=== PATIENT | female | born 1960 | race African-American/Black ===

== ENCOUNTER 2017-03-20 10:24 | Emergency (ER) | payer OTHER ==
[2017-03-20 10:29] VITALS: BMI 30.9
--- NOTE | 2017-03-20 11:07 | PDOC ---
*Physical Exam - Vital Signs Last Vital Signs Temp Pulse Resp BP Pulse Ox 97.6 F 66 17 148/98 98 03/20/17 10:27 03/20/17 10:27 03/20/17 10:27 03/20/17 10:27 03/20/17 10:27 ED Treatment Course - LABORATORY CBC & Chemistry Diagram: 03/20/17 11:15 03/20/17 11:13 Medical Decision Making - Medical Decision Making 03/20/17 23:20 Pt seen by the Advanced Practice Provider under my direct supervision Ancillary studies reviewed I agree with plan as outlined by the Advanced Practice Provider *DC/Admit/Observation/Transfer Diagnosis at time of Disposition: Viral gastroenteritis, Elevated liver function tests - Discharge Dispostion Disposition: HOME Condition at time of disposition: Improved - Prescriptions Prescriptions: Famotidine [Pepcid -] 20 mg PO DAILY #7 tablet - Referrals Referrals: [facility] ([facility]) [Outside] [facility] ([facility]) [Outside] Car York MD [Staff Physician] - - Patient Instructions Printed Discharge Instructions: DI for Viral Gastroenteritis -- Adult Additional Instructions: bland diet as tolerated the next 24-48hrs start with clear fluids then dry cereal, dry toast, bannanas take pepcid as prescribed for 7 days follow with [facility] for follow up call today to make appointment for next week follow up on the elevated liver enzymes with your doctor at [facility] avoid any ALCOHOL as this may make your symptoms worse Return to the ER for any worsening pain
[2017-03-20] MEDS ORDERED: SODIUM CHLORIDE 1,000 ML IV STA (11:13)
[2017-03-20] MEDS ORDERED: FAMOTIDINE 20 MG/50 ML IVPB 50 ML IVPB ONE ×2 (11:13→11:19)
[2017-03-20] MEDS ORDERED: ONDANSETRON 4 MG/2 ML VIAL IVPUSH ONE (11:13)
[2017-03-20] MEDS ORDERED: ONDANSETRON 4 MG/2 ML VIAL ONE (11:18)
--- NOTE | 2017-03-20 11:19 | PDOC ---
History of Present Illness - General Chief Complaint: Pain Stated Complaint: ABD PAIN Time Seen by Provider: 03/20/17 11:06 History Source: Patient Exam Limitations: No Limitations - History of Present Illness Travel History: No Initial Comments: 03/20/17 11:16 56 yr female with c/o headache abd pain for one week. Pt states loose stool, worse since last night after drinking a [employer] alcoholic drink. Pt denies fever or chill, history of gastric bypass. Pt denies any medical history allergy to bactrim. no PMD Timing/Duration: reports: constant Quality: reports: mild, cramping (comes and goes) Pain Radiation: reports: no radiation Activities at Onset: reports: none Past History - Past Medical History Allergies/Adverse Reactions: Allergies Allergy/AdvReac Type Severity Reaction Status Date / Time Sulfa (Sulfonamide Allergy Verified 03/20/17 10:30 Antibiotics) Home Medications: Ambulatory Orders Famotidine [Pepcid -] 20 mg PO DAILY #7 tablet 03/20/17 Other medical history: Pt denies - Suicide/Smoking/Psychosocial Hx Smoking History: Never smoked Hx Alcohol Use: No Drug/Substance Use Hx: No Substance Use Type: None Abd/GI Specific PMHX - Complaint Specific PMHX Colitis: No Diverticulitis: No Gall Bladder Disease: No GERD: No Hepatitis: No Irritable Bowel Synd (IBS): No Pancreatitis: No GI Ulcer Disease: No Review of Systems - Review of Systems Able to Perform ROS?: Yes Is the patient limited Slovenian proficient: No Constitutional: No: Symptoms Reported HEENTM: No: Symptoms Reported Respiratory: No: Symptoms reported Cardiac (ROS): No: Symptoms Reported ABD/GI: Yes: Symptoms Reported, See HPI Neurological: Yes: Symptoms reported, Headache *Physical Exam - Vital Signs Last Vital Signs Temp Pulse Resp BP Pulse Ox 97.6 F 66 17 148/98 98 03/20/17 10:27 03/20/17 10:27 03/20/17 10:27 03/20/17 10:27 03/20/17 10:27 - Physical Exam General Appearance: Yes: Nourished, Appropriately Dressed HEENT: positive: EOMI, JOYCE, Normal ENT Inspection, TMs Normal, Pharynx Normal. negative: TM Erythema Neck: positive: Supple. negative: Tender Respiratory/Chest: positive: Lungs Clear, Normal Breath Sounds. negative: Chest Tender Cardiovascular: positive: Regular Rhythm, Regular Rate Gastrointestinal/Abdominal: positive: Normal Bowel Sounds, Soft. negative: Tender, Guarding, Rebound, Tenderness Musculoskeletal: positive: Normal Inspection Extremity: positive: Normal Capillary Refill, Normal Inspection, Normal Range of Motion Integumentary: positive: Normal Color, Dry, Warm Neurologic: positive: Fully Oriented, Alert, Normal Mood/Affect, Normal Response , Motor Strength 5/5, Finger to Nose (intact ). negative: Respond to painful stimul, Responsive, EOM Palsy, Facial Droop, Sensory Deficit, Disoriented ED Treatment Course - LABORATORY CBC & Chemistry Diagram: 03/20/17 11:15 03/20/17 11:13 Medical Decision Making - Medical Decision Making 03/20/17 11:19 cc: headache with photphobia, abd pain on and off one week worse after drinking alcohol last night will check labs, IVF, pepcid, zofran, benadryl abd is soft non tender no rebound 03/20/17 11:20 *DC/Admit/Observation/Transfer Diagnosis at time of Disposition: Viral gastroenteritis, Elevated liver function tests - Discharge Dispostion Disposition: HOME Condition at time of disposition: Improved - Prescriptions Prescriptions: Famotidine [Pepcid -] 20 mg PO DAILY #7 tablet - Referrals Referrals: [facility] [place] ([facility]) [Outside] [facility] [place] ([facility]) [Outside] Cra York MD [Staff Physician] - - Patient Instructions Additional Instructions: bland diet as tolerated the next 24-48hrs start with clear fluids then dry cereal, dry toast, bannanas take pepcid as prescribed for 7 days follow with [facility] for follow up call today to make appointment for next week follow up on the elevated liver enzymes with your doctor at [facility] avoid any ALCOHOL as this may make your symptoms worse Return to the ER for any worsening pain
[2017-03-20 11:21] LABS: BASOPHIL 0.5 % (0-2.0); EOSINOPHIL 0.7 % (0-4.5); MCH 28.1 pg (25.7-33.7); MCHC 32.5 g/dl (32.0-36.0); MEAN CELL VOLUME 86.2 fl (80-96); MEAN PLT VOLUME 7.9 fl (7.5-11.1); NEUTROPHILS 81.2 % (42.8-82.8); PLATELET COUNT 284 K/MM3 (134-434); RDW 13.7 % (11.6-15.6); WHITE BLOOD COUNT 10.3 K/mm3 (4.0-10.0)
[2017-03-20 11:42] LABS: URINE APPEARANCE SLCLOUDY; URINE BILIRUBIN NEGATIVE (NEGATIVE); URINE BLOOD NEGATIVE (NEGATIVE); URINE COLOR AMBER; URINE GLUCOSE (UA) NEGATIVE (NEGATIVE); URINE KETONE NEGATIVE (NEGATIVE); URINE LEUK ESTERASE NEGATIVE (NEGATIVE); URINE NITRITE NEGATIVE (NEGATIVE)
[2017-03-20 11:51] LABS: URINE PROTEIN 1+ (NEGATIVE)
[2017-03-20 11:53] LABS: URINE MUCUS MANY; URINE RBC 11 /hpf (0-3); URINE WBC 2 /hpf (3-5)
[2017-03-20 11:54] LABS: ALBUMIN 3.6 g/dl (3.4-5.0); ALK PHOS 87 U/L (45-117); AMYLASE 55 U/L (25-115); ANION GAP 4 (8-16); BILIRUBIN,TOTAL 0.5 mg/dL (0.2-1.0); CALCIUM 9.1 mg/dL (8.5-10.1); CO2 30 mmol/L (21-32); CREATININE 0.7 mg/dL (0.55-1.02); GLUCOSE,RANDOM 97 mg/dL (74-106); SGPT/ALT 80 U/L (12-78); TOT PROT 6.9 g/dl (6.4-8.2)
[2017-03-20 11:56] LABS: SGOT/AST 64 U/L (15-37)
[2017-03-20 14:45] VITALS: BP 126/78; PULSE 78; TEMP 98.2
== END 2017-03-20 14:20 | disposition home or self-care (01) ==
LOC: JER 10:24
PROC: 3E033GC Introduction of Other Therapeutic Substance into Peripheral Vein, Percutaneous Approach (ICD-10-PCS; principal; 2017-03-20)
PROC: 3E033GC Introduction of Other Therapeutic Substance into Peripheral Vein, Percutaneous Approach (ICD-10-PCS; 2017-03-20)
DX: A08.4 Viral intestinal infection, unspecified (principal); B97.89 Other viral agents as the cause of diseases classified elsewhere; R79.89 Other specified abnormal findings of blood chemistry
CPT/HCPCS: 36415; 80053; 81003; 81015; 82150; 83690; 85025; 87086; 99283-25

== ENCOUNTER 2017-04-09 14:28 | Emergency (ER) | payer OTHER ==
[2017-04-09 14:50] VITALS: BMI 28.3
--- NOTE | 2017-04-09 14:59 | PDOC ---
History of Present Illness - General History Source: Patient - History of Present Illness Timing/Duration: reports: other Severity: Yes: moderate Associated Symptoms: denies: fever/chills, nausea/vomiting, ringing in ears <Bhavani Granado - Last Filed: 04/09/17 16:15> <Yris Huynh - Last Filed: 04/11/17 07:21> - General Chief Complaint: Lightheaded Stated Complaint: DIZZINESS Time Seen by Provider: 04/09/17 14:46 Past History - Past Medical History HTN: Yes Other medical history: migraines - Surgical History GI Surgery: Yes (gastric bypass) - Suicide/Smoking/Psychosocial Hx Smoking History: Never smoked Have you smoked in the past 12 months: No Information on smoking cessation initiated: No Hx Alcohol Use: No Drug/Substance Use Hx: No Substance Use Type: None <Bhavani Granado - Last Filed: 04/09/17 16:15> <Yris Huynh - Last Filed: 04/11/17 07:21> - Past Medical History Allergies/Adverse Reactions: Allergies Allergy/AdvReac Type Severity Reaction Status Date / Time Sulfa (Sulfonamide Allergy Verified 04/09/17 14:43 Antibiotics) Home Medications: Ambulatory Orders Cyanocobalamin (Vitamin B-12) [Vitamin B-12] 1,000 mcg PO DAILY 04/09/17 Review of Systems - Review of Systems Constitutional: No: Chills, Fever ABD/GI: No: Nausea, Vomiting Neurological: Yes: Headache, Dizziness <Bhavani Granado - Last Filed: 04/09/17 16:15> *Physical Exam - Vital Signs Last Vital Signs Temp Pulse Resp BP Pulse Ox 97.3 F L 72 20 159/104 100 04/09/17 14:47 04/09/17 14:47 04/09/17 14:47 04/09/17 14:47 04/09/17 14:47 - Physical Exam General Appearance: Yes: Appropriately Dressed. No: Apparent Distress HEENT: positive: Normal Voice Neck: positive: Supple Respiratory/Chest: negative: Respiratory Distress Integumentary: positive: Dry, Warm Neurologic: positive: Fully Oriented, Alert, Normal Mood/Affect, Motor Strength 5/5 <Bhavani Granado - Last Filed: 04/09/17 16:15> - Vital Signs Last Vital Signs Temp Pulse Resp BP Pulse Ox 98.1 F 75 18 138/95 99 04/09/17 16:35 04/09/17 16:35 04/09/17 16:35 04/09/17 16:35 04/09/17 16:35 <Yris Huynh - Last Filed: 04/11/17 07:21> ED Treatment Course - RADIOLOGY Radiology Studies Ordered: Category Date Time Status HEAD CT WITHOUT CONTRAST [CT] Stat CT Scan 04/09/17 14:57 Ordered <Bhavani Granado - Last Filed: 04/09/17 16:15> Medical Decision Making - Medical Decision Making 04/09/17 14:58 56-year-old female, denies any past medical history here with headache and dizziness that has been intermittent for 2 months. Was seen in ED over 2 weeks ago for symptoms and had negative blood work. Patient states she went to see her doctor as a walk in visit today and was told she might have migraines and started on fioricet which pt has not yet started. States Meyer also arranged for her to have a CT head in the near future, but decided to come to ED for CT instead as she is anxious. Patient denies any visual changes, nausea and vomiting. No unexplained weight loss. MAGALLANES mild currently. Pt well teresa and stable w/ unremarkable exam. CT head pending. Anticipate discharge to continue f/u with PMD. May also benefit from neuro f/u 04/09/17 15:07 04/09/17 16:07 CT with no acute pathology. Seen is a 0.70.4 cm focus in the right lateral prepontine cistern which could be an aneurysm versus a small neoplastic focus versus unusual artifact as per radiology. Recommending non-emergent CTA or MRA to further evaluate for possible aneurysm. Patient informed and given a copy of CT report to follow-up with her PMD this week to arrange outpatient MRA. ED attg aware of disposition <Bhavani Granado - Last Filed: 04/09/17 16:15> *DC/Admit/Observation/Transfer <Bhavani Granado - Last Filed: 04/09/17 16:15> - Attestations Physician Attestion: I reviewed the case with the mid-level practitioner and agree with the mid- level practitioner's assessment, diagnosis and disposition. <Yris Huynh - Last Filed: 04/11/17 07:21> Diagnosis at time of Disposition: Headache Qualifiers: Headache type: unspecified Headache chronicity pattern: episodic headache Intractability: not intractable Qualified Code(s): R51 - Headache - Discharge Dispostion Disposition: HOME Condition at time of disposition: Good - Referrals Referrals: Berenice Gerber MD [Primary Care Provider] - - Patient Instructions Printed Discharge Instructions: DI for Headache Additional Instructions: CAT scan of her head did not show any acute abnormality today. There is a small area that could possibly be an aneurysm and you will need out-patient CTA or MRA of the brain to further evaluate. Please follow-up with your PMD and make aware so M.Polina. can arrange outpatient imaging. Take Fioricet as prescribed by your PMD Print Language: YI
[2017-04-09 16:36] VITALS: BP 138/95; PULSE 75; TEMP 98.1
== END 2017-04-09 16:00 | disposition home or self-care (01) ==
LOC: JER 14:28
DX: R51 Headache (principal); Z98.84 Bariatric surgery status; I10 Essential (primary) hypertension
CPT/HCPCS: 70450-TC; 99282-25